=== PATIENT | male | born 1960 | race Caucasian/White ===

== ENCOUNTER 2020-07-13 07:27 | Day surgery (SDC) | payer OTHER ==
[~2020-07-13] VITALS: Ht 157.5 cm; Wt 85.3 kg
[2020-07-13 08:14] VITALS: BP 146/76
[2020-07-13 11:44] VITALS: BP 114/75
== END 2020-07-13 11:50 | disposition home or self-care (01) ==
LOC: GI 07:27 → OR 11:00 → GI 11:00
PROVIDERS: ATTEND Internal Medicine Gastroenterology
DX: R19.5 Other fecal abnormalities (principal); K57.30 Diverticulosis of large intestine without perforation or abscess without bleeding; K64.8 Other hemorrhoids
CPT/HCPCS: 45378; J1200; J1610; J2250; J2310; J3010; J3490